=== PATIENT | female | born 1970 | race Two or more races ===

== ENCOUNTER 2024-06-11 08:22 | Outpatient (AMB) | payer MEDICAID, SELFPAY ==
[2024-06-11 08:41] VITALS: BP 120/74; PULSE 74; RESP 18; TEMP 36.1; O2SAT 95; BMI 46.0
--- NOTE | 2024-06-11 08:41 | PD.ORTHCLVIS ---
Vital signs 06/11/24 08:41 Height 1.45 m Height Method Stated Weight 96.729 kg Weight Measurement Method Standing Scale BMI 46.0 BP 120/74 Blood Pressure Source Automatic Cuff Blood Pressure Location Right Upper Arm Position Sitting Respiration 18 Pulse 74 Pulse Source Monitor Temp 96.9 F Temp Source Temporal Artery Scan Pulse Oximetry (%) 95 Oxygen Delivery Method Room Air Med/Allergies Allergies & Medications Allergies Penicillins Allergy (Verified 06/11/24 08:42) Medication Reconciliation meloxicam 7.5 mg tablet 7.5 mg PO QDAY #45 tabs 09/03/23 [Rx Confirmed 06/11/24] metformin 500 mg tablet 500 mg PO QDAY 09/03/23 [History Confirmed 06/11/24] telmisartan 20 mg tablet 20 mg PO QDAY 09/03/23 [History Confirmed 06/11/24] Subjective Visit Visit for: follow up visit, knee and injections Immunization / Flu Flu Vaccine in the Last 12 Months: Yes Flu Vaccine Exclusion Criteria: Already Received History of Present Illness Chief complaint: 3 MONTH F/U ON KNEE INJECTIONS Patient is a pleasant 53-year-old female with bilateral knee pain. This pain has been ongoing for about a year. She has not had significant conservative treatment. She was told that her knees are [id number]. She is working on weightloss and has been on a weightloss injection. Personal History Red flag PMH: smoker (non smoker ) and other (specify) (diabetes ) Pain Pain level (0-10): 9 Pain duration: ALL DAY Pain location: anterior Pain quality: sharp Pain timing: increases with activity Associated signs & symptoms: weakness and stiffness Ambulatory data Ambulatory device: walker Treatments Number of previous injections: 3 Improvement with previous injections: Yes Improvement with PT: No Improvement with NSAIDS: n/a Review of Systems Review of Systems: All systems negative unless otherwise noted in HPI. Exam Exam Patient is in no acute distress and is cooperative with the examination today. Breathing is nonlabored. In no respiratory distress. Bilateral extremities were evaluated and demonstrates sensation intact to light touch. Palpable pedal pulses are present. No significant edema is present. Bilateral hips were examined. The patient has no pain with log roll of the hips. Internal rotation to 30 degrees and external rotation to 30 degrees is painless. Negative FADIR. The left knee was examined. The left knee is in [varus] alignment. Range of motion from [0-115] degrees. Knee is stable to varus and valgus as well as AP translation with <5mm. Patient has a [negative] McMurrays. There is [no] pain with patellofemoral compression and [no] crepitus noted. The knee is [tender] to palpation [medially]. The right knee was also examined. The right knee is in [varus] alignment. Range of motion from [0-120] degrees. Knee is stable to varus and valgus as well as AP translation with <5mm. Patient has a [negative] McMurrays. There is [no] pain with patellofemoral compression and [no] crepitus noted. The knee is [tender] to palpation [medially]. Xrays demonstrate significant osteoarthritis bilaterally Assessment and Plan Problem List (1) Bilateral primary osteoarthritis of knee: Status: Acute Plan: Patient is a pleasant 53-year-old female with bilateral knee pain and osteoarthritis. We discussed nonoperative and operative options. She is actually not a great candidate because of her BMI. The patient has lost 10 pounds and we would like for her to continue losing weight We discussed nonoperative options. We also discussed weight loss. We will continue with conservative management Recommend knee cortisone injections as patient would like to proceed with conservative treatment at this time. The risks and benefits of the procedure were reviewed with the patient and patient gave verbal consent to continue with the procedure. Procedure: performed by Dr. Brown Using sterile technique the Bilateral knees were thoroughly prepped with alcohol, and approximately 1 cc of Kenalog 40 mg/mL and 4 cc of 1% lidocaine was injected into each knee without resistance into the medial tibial femoral joint space. The patient tolerated the procedure. (2) Bilateral knee pain: Status: Acute Office Procedures GNS Level of Care Nursing/Assessment Patient Status: Established Patient Nursing Assessment/Reassesment: Medication Reconciliation, Update PMH in EMR and Vital Signs Coordination of Care: Complex Care and Chronic Disease 1-5, Education Complex Pt/Fam, Consent,records obtained, informed consent, Results/Orders obtained and Staff clarify orders Special Needs: Language special needs Established Patient Charge Established Patient Point Assignment: 95 Established Patient Point Charge: EP Level 3 (80-115) Past Medical History Past Medical History Have you ever been diagnosed with any of the following: Respiratory Problems Smoking: No Smoking Exposure: No
== END 2024-06-11 09:13 | disposition home or self-care (01) ==
LOC: HODSRG 08:22
PROVIDERS: Supervising Provider Orthopaedic Surgery Adult Reconstructive Orthopaedic Surgery; Visit Provider Orthopaedic Surgery Adult Reconstructive Orthopaedic Surgery
DX: M17.0 Bilateral primary osteoarthritis of knee (principal); M25.561 Pain in right knee; M25.562 Pain in left knee
CPT/HCPCS: 20610; 99213; J3301; J3490; G0463

== ENCOUNTER 2024-09-11 08:10 | Outpatient (AMB) | payer MEDICAID, SELFPAY ==
[2024-09-11 08:44] VITALS: BP 118/79; PULSE 81; RESP 18; TEMP 35.9; O2SAT 95; BMI 46.4
--- NOTE | 2024-09-11 08:44 | ORTHONT_ITS ---
Vital signs 09/11/24 08:44 Height 1.45 m Height Method Stated Weight 97.636 kg Weight Measurement Method Standing Scale BMI 46.4 BP 118/79 Blood Pressure Source Automatic Cuff Blood Pressure Location Left Upper Arm Position Sitting Respiration 18 Pulse 81 Pulse Source Monitor Temp 96.7 F L Temp Source Temporal Artery Scan Pulse Oximetry (%) 95 Oxygen Delivery Method Room Air Med/Allergies Allergies & Medications Allergies Penicillins Allergy (Verified 09/11/24 08:45) Medication Reconciliation meloxicam 7.5 mg tablet 7.5 mg PO QDAY #45 tabs 09/03/23 [Rx Confirmed 09/11/24] metformin 500 mg tablet 500 mg PO QDAY 09/03/23 [History Confirmed 09/11/24] telmisartan 20 mg tablet 20 mg PO QDAY 09/03/23 [History Confirmed 09/11/24] Exam Exam Patient is in no acute distress and is cooperative with the examination today. Breathing is nonlabored. In no respiratory distress. Bilateral extremities were evaluated and demonstrates sensation intact to light touch. Palpable pedal pulses are present. No significant edema is present. Bilateral hips were examined. The patient has no pain with log roll of the hips. Internal rotation to 30 degrees and external rotation to 30 degrees is painless. Negative FADIR. The left knee was examined. The left knee is in [varus] alignment. Range of motion from [0-115] degrees. Knee is stable to varus and valgus as well as AP translation with <5mm. Patient has a [negative] McMurrays. There is [no] pain with patellofemoral compression and [no] crepitus noted. The knee is [tender] to palpation [medially]. The right knee was also examined. The right knee is in [varus] alignment. Range of motion from [0-120] degrees. Knee is stable to varus and valgus as well as AP translation with <5mm. Patient has a [negative] McMurrays. There is [no] pain with patellofemoral compression and [no] crepitus noted. The knee is [tender] to palpation [medially]. Xrays demonstrate significant osteoarthritis bilaterally Assessment and Plan Problem List (1) Bilateral primary osteoarthritis of knee: Status: Acute Plan: Patient is a pleasant 53-year-old female with bilateral knee pain and osteoarthritis. We discussed nonoperative and operative options. She is actually not a great candidate because of her BMI. The patient has lost 10 pounds and we would like for her to continue losing weight We discussed nonoperative options. We also discussed weight loss. We will continue with conservative management Recommend knee cortisone injections as patient would like to proceed with conservative treatment at this time. The risks and benefits of the procedure were reviewed with the patient and patient gave verbal consent to continue with the procedure. Procedure: performed by Dr. Brown Using sterile technique the Bilateral knees were thoroughly prepped with alcohol, and approximately 1 cc of Kenalog 40 mg/mL and 4 cc of 1% lidocaine was injected into each knee without resistance into the medial tibial femoral joint space. The patient tolerated the procedure. (2) Bilateral knee pain: Status: Acute Office Procedures GNS Level of Care Nursing/Assessment Patient Status: Established Patient Nursing Assessment/Reassesment: Medication Reconciliation, Update PMH in EMR and Vital Signs Coordination of Care: Complex Care/Chronic Disease 5 or more, Education Complex Pt/Fam, Consent,records obtained, informed consent and Staff clarify orders Established Patient Charge Established Patient Point Assignment: 100 Established Patient Point Charge: EP Level 3 (80-115) Surgical Proc/IM SQ injection Major Surgical Procedure: Yes (BILATERAL KNEE INJECTION ) Medication Given Medication Given Medication Given: Yes Documented Dose Given: 8 Route: Infiitration Medication Given Medication Given Medication Given: Yes Documented Dose Given: 2 Route: Infiitration Office Meds Xylocaine 10 mg/mL (1 %) injection solution Performing Provider: Nicolas Brown MD Performing Location: [facility] Administered by: Lyndsey Benitez on 09/11/24 09:03 Dose Route Admin Location Dispensed Lot Number Expiration Date [facility] [employer] Software Test Engineer 40 mL Infiltration 40 mL triamcinolone acetonide 40 mg/mL suspension for injection Performing Provider: Nicolas Brown MD Performing Location: [facility] Administered by: Nicolas Brown MD on 09/11/24 09:03 Dose Route Admin Location Dispensed Lot Number Expiration Date [facility] [employer] 80 mg intra-articular 2 mL [place] Intake Visit Data Collection New Patient or Established: Established Patient (seen at [facility] within 3 years) Reason for Visit:: BILATERAL KNEE INJECTIONS Image Scientist Required: Yes PCP or OBGYN visit in last 3 months: Yes Do You Feel Safe at Home: Yes Questionairres Past Medical History Past Medical History Have you ever been diagnosed with any of the following: Respiratory Problems Smoking: No Smoking Exposure: No Subjective Visit Visit for: follow up visit and knee Immunization / Flu Flu Vaccine in the Last 12 Months: No Flu Vaccine Exclusion Criteria: No Exclusion Criteria History of Present Illness Chief complaint: bilateral knee pain Patient is a 54-year-old female with bilateral knee pain. The last injections lasted 2 months. She would like a once a day. We discussed weight loss and she is actually gained weight since we last saw her. She would like new knee injections today Personal History Red flag PMH: none Pain Pain level (0-10): 8 Pain duration: CONSTANT Pain location: inside (medial) Pain quality: sharp and aching Pain timing: increases with activity and stairs Associated signs & symptoms: stiffness Ambulatory data Ambulatory device: walker Treatments Improvement with previous injections: Yes Review of Systems Review of Systems: All systems negative unless otherwise noted in HPI.
== END 2024-09-11 09:07 | disposition home or self-care (01) ==
LOC: HODSRG 08:10
PROVIDERS: Supervising Provider Orthopaedic Surgery Adult Reconstructive Orthopaedic Surgery; Visit Provider Orthopaedic Surgery Adult Reconstructive Orthopaedic Surgery
DX: M17.0 Bilateral primary osteoarthritis of knee (principal); M25.561 Pain in right knee; M25.562 Pain in left knee
CPT/HCPCS: 20610; 99213; J3301; J3490; G0463

== ENCOUNTER 2024-12-18 08:15 | Outpatient (AMB) | payer MEDICAID, SELFPAY ==
[2024-12-18 08:40] VITALS: BP 120/67; PULSE 70; RESP 18; TEMP 36.1; O2SAT 95; BMI 46.9
--- NOTE | 2024-12-18 08:40 | PD.ORTHCLVIS ---
Vital signs 12/18/24 08:40 Height 1.45 m Height Method Stated Weight 98.685 kg Weight Measurement Method Standing Scale BMI 46.9 BP 120/67 Blood Pressure Source Automatic Cuff Blood Pressure Location Right Upper Arm Position Sitting Respiration 18 Pulse 70 Pulse Source Monitor Temp 96.9 F Temp Source Temporal Artery Scan Pulse Oximetry (%) 95 Oxygen Delivery Method Room Air Med/Allergies Allergies & Medications Allergies Penicillins Allergy (Verified 12/18/24 08:41) Medication Reconciliation meloxicam 7.5 mg tablet 7.5 mg PO QDAY #45 tabs 09/03/23 [Rx Confirmed 12/18/24] metformin 500 mg tablet 500 mg PO QDAY 09/03/23 [History Confirmed 12/18/24] telmisartan 20 mg tablet 20 mg PO QDAY 09/03/23 [History Confirmed 12/18/24] Exam Exam Patient is in no acute distress and is cooperative with the examination today. Breathing is nonlabored. In no respiratory distress. Bilateral extremities were evaluated and demonstrates sensation intact to light touch. Palpable pedal pulses are present. No significant edema is present. Bilateral hips were examined. The patient has no pain with log roll of the hips. Internal rotation to 30 degrees and external rotation to 30 degrees is painless. Negative FADIR. The left knee was examined. The left knee is in [varus] alignment. Range of motion from [0-115] degrees. Knee is stable to varus and valgus as well as AP translation with <5mm. Patient has a [negative] McMurrays. There is [no] pain with patellofemoral compression and [no] crepitus noted. The knee is [tender] to palpation [medially]. The right knee was also examined. The right knee is in [varus] alignment. Range of motion from [0-120] degrees. Knee is stable to varus and valgus as well as AP translation with <5mm. Patient has a [negative] McMurrays. There is [no] pain with patellofemoral compression and [no] crepitus noted. The knee is [tender] to palpation [medially]. Xrays demonstrate significant osteoarthritis bilaterally. There is varus deformity. Assessment and Plan Problem List (1) Bilateral primary osteoarthritis of knee: Status: Acute Plan: Patient is a pleasant 53-year-old female with bilateral knee pain and osteoarthritis. We discussed nonoperative and operative options. She is actually not a great candidate because of her BMI. T We discussed nonoperative options. We also discussed weight loss. We will continue with conservative management Recommend knee cortisone injections as patient would like to proceed with conservative treatment at this time. The risks and benefits of the procedure were reviewed with the patient and patient gave verbal consent to continue with the procedure. Procedure: performed by Dr. Brown Using sterile technique the Bilateral knees were thoroughly prepped with alcohol, and approximately 1 cc of Kenalog 40 mg/mL and 4 cc of 1% lidocaine was injected into each knee without resistance into the medial tibial femoral joint space. The patient tolerated the procedure. (2) Bilateral knee pain: Status: Acute Office Procedures GNS Level of Care Nursing/Assessment Patient Status: Established Patient Nursing Assessment/Reassesment: Medication Reconciliation, Update PMH in EMR and Vital Signs Coordination of Care: Complex Care and Chronic Disease 1-5, Education Complex Pt/Fam, Consent,records obtained, informed consent, Results/Orders obtained and Staff clarify orders Special Needs: Language special needs Established Patient Charge Established Patient Point Assignment: 95 Established Patient Point Charge: EP Level 3 (80-115) Surgical Proc/IM SQ injection Major Surgical Procedure: Yes (BILATERAL KNEE INJECTION ) Medication Given Medication Given Medication Given: Yes Documented Dose Given: 8 Route: Infiitration Medication Given Medication Given Medication Given: Yes Documented Dose Given: 2 Route: Infiitration Office Meds Xylocaine 10 mg/mL (1 %) injection solution Performing Provider: Nicolas Brown MD Performing Location: [facility] Administered by: Nicolas Brown MD on 12/18/24 09:45 Dose Route Admin Location Dispensed Lot Number Expiration Date [facility] Construction Sales Manager 40 mL Infiltration 40 mL [id number] 03/05/28 60360-126-11 [facility] triamcinolone acetonide 40 mg/mL suspension for injection Performing Provider: Nicolas Brown MD Performing Location: [facility] Administered by: Nicolas Brown MD on 12/18/24 09:45 Dose Route Admin Location Dispensed Lot Number Expiration Date [facility] Construction Sales Manager 80 mg intra-articular KNEE 2 mL [id number] 07/05/26 7711-2582-24 [employer] [place] Intake Visit Data Collection New Patient or Established: Established Patient (seen at [facility] within 3 years) Reason for Visit:: F/U 3 MONTHS KNEE INJECTION Seen by Clinical Staff ONLY (RN/MA): No Verbal consent obtained for Telemed visit?: No Regional Facilities Manager Required: Yes PCP or OBGYN visit in last 3 months: Yes Hx Now: No Do You Feel Safe at Home: Yes Authorities Contacted: N/A Questionairres Past Medical History Past Medical History Have you ever been diagnosed with any of the following: Respiratory Problems Smoking: No Smoking Exposure: No Stomache/Intestinal Problems Obesity: Yes Subjective Visit Visit for: follow up visit, knee and injections Immunization / Flu Flu Vaccine in the Last 12 Months: Yes Flu Vaccine Exclusion Criteria: Already Received History of Present Illness Chief complaint: F/U 3 MONTH KNEE INJECTIONS Patient is a 54-year-old female with bilateral knee pain. The last injections lasted 3 months. We discussed weight loss and she has actually gained weight since we last saw her. She would like new knee injections today Personal History Occupation: DISABLED Red flag PMH: BMI BMI Counceling provided: Yes Pain Pain level (0-10): 9 Pain duration: ALL DAY Pain location: inside (medial), outside (lateral), anterior and posterior Pain quality: sharp, dull and aching Pain timing: increases with activity Associated signs & symptoms: numbness, weakness and stiffness Ambulatory data Ambulatory device: walker Treatments Number of previous injections: 3 Improvement with previous injections: Yes Improvement with PT: No Improvement with NSAIDS: no Review of Systems Review of Systems: All systems negative unless otherwise noted in HPI.
== END 2024-12-18 08:54 | disposition home or self-care (01) ==
LOC: HODSRG 08:15
PROVIDERS: Supervising Provider Orthopaedic Surgery Adult Reconstructive Orthopaedic Surgery; Visit Provider Orthopaedic Surgery Adult Reconstructive Orthopaedic Surgery
DX: M17.0 Bilateral primary osteoarthritis of knee (principal); M25.561 Pain in right knee; M25.562 Pain in left knee; E66.9 Obesity, unspecified; Z68.42 Body mass index [BMI] 45.0-49.9, adult
CPT/HCPCS: 20610; 99213; J3301; J3490; G0463

== ENCOUNTER 2025-03-23 10:10 | Outpatient (AMB) | payer MEDICAID, SELFPAY ==
--- NOTE | 2025-03-23 10:19 | ORTHONT_ITS ---
Vital signs 03/23/25 10:28 Height 1.45 m Height Method Stated Weight 94.092 kg Weight Measurement Method Standing Scale BMI 44.7 BP 117/74 Blood Pressure Source Automatic Cuff Blood Pressure Location Left Upper Arm Position Sitting Respiration 19 Pulse 75 Pulse Source Monitor Temp 97.0 F Temp Source Temporal Artery Scan Pulse Oximetry (%) 96 Oxygen Delivery Method Room Air Med/Allergies Allergies & Medications Allergies Penicillins Allergy (Verified 03/23/25 10:29) Medication Reconciliation meloxicam 7.5 mg tablet 7.5 mg PO QDAY #45 tabs 09/03/23 [Rx Confirmed 03/23/25] metformin 500 mg tablet 500 mg PO QDAY 09/03/23 [History Confirmed 03/23/25] telmisartan 20 mg tablet 20 mg PO QDAY 09/03/23 [History Confirmed 03/23/25] Exam Exam Patient is in no acute distress and is cooperative with the examination today. Breathing is nonlabored. In no respiratory distress. Bilateral extremities were evaluated and demonstrates sensation intact to light touch. Palpable pedal pulses are present. No significant edema is present. Bilateral hips were examined. The patient has no pain with log roll of the hips. Internal rotation to 30 degrees and external rotation to 30 degrees is painless. Negative FADIR. The left knee was examined. The left knee is in [varus] alignment. Range of motion from [0-115] degrees. Knee is stable to varus and valgus as well as AP translation with <5mm. Patient has a [negative] McMurrays. There is [no] pain with patellofemoral compression and [no] crepitus noted. The knee is [tender] to palpation [medially]. The right knee was also examined. The right knee is in [varus] alignment. Range of motion from [0-120] degrees. Knee is stable to varus and valgus as well as AP translation with <5mm. Patient has a [negative] McMurrays. There is [no] pain with patellofemoral compression and [no] crepitus noted. The knee is [tender] to palpation [medially]. Xrays demonstrate significant osteoarthritis bilaterally. There is varus deformity. Assessment and Plan Problem List (1) Bilateral primary osteoarthritis of knee: Status: Acute Plan: Patient is a pleasant 53-year-old female with bilateral knee pain and osteoarthritis. We discussed nonoperative and operative options. She is actually not a great candidate because of her BMI. T We discussed nonoperative options. We also discussed weight loss. We will continue with conservative management Recommend knee cortisone injection as patient would like to proceed with conservative treatment at this time. The risks and benefits of the procedure were reviewed with the patient and patient gave verbal consent to continue with the procedure. Procedure: performed by Dr. Brown Using sterile technique the left knee was thoroughly prepped with alcohol, and approximately 1 cc of Depo-Medrol 80mg/mL and 4 cc of 0.2% ropivacaine was injected without resistance into the medial tibial femoral joint space. The patient tolerated the procedure. Recommend knee cortisone injection as patient would like to proceed with conservative treatment at this time. The risks and benefits of the procedure were reviewed with the patient and patient gave verbal consent to continue with the procedure. Procedure: performed by Dr. Brown Using sterile technique the Right knee was thoroughly prepped with alcohol, and approximately 1 cc of Depo-Medrol 80mg/mL and 4 cc of 0.2% ropivacaine was injected without resistance into the medial tibial femoral joint space. The patient tolerated the procedure. (2) Bilateral knee pain: Status: Acute Office Procedures GNS Level of Care Nursing/Assessment Patient Status: Established Patient Nursing Assessment/Reassesment: Medication Reconciliation, Update PMH in EMR and Vital Signs Coordination of Care: Complex Care and Chronic Disease 1-5, Education Complex Pt/Fam, Consent,records obtained, informed consent, Results/Orders obtained and Staff clarify orders Established Patient Charge Established Patient Point Assignment: 95 Established Patient Point Charge: EP Level 3 (80-115) Surgical Proc/IM SQ injection Major Surgical Procedure: Yes (KNEE INJECTION) Medication Given Medication Given Medication Given: Yes Documented Dose Given: 1 Route: Infiitration Medication Given Medication Given Medication Given: Yes Documented Dose Given: 1 Route: Infiitration Medication Given Medication Given Medication Given: Yes Documented Dose Given: 4 Route: Infiitration Medication Given Medication Given Medication Given: Yes Documented Dose Given: 4 Route: Infiitration Office Meds methylprednisolone acetate 80 mg/mL suspension for injection Performing Provider: Nicolas Brown MD Performing Location: [facility] Administered by: Nicolas Brown MD on 03/23/25 11:19 Dose Route Admin Location Dispensed Lot Number Expiration Date NDC Physician Office Rep 80 mg intra-articular KNEE 1 mL [id number] 01/02/27 [address]-4 [employer] methylprednisolone acetate 80 mg/mL suspension for injection Performing Provider: Nicolas Brown MD Performing Location: [facility] Administered by: Nicolas Brown MD on 03/23/25 11:19 Dose Route Admin Location Dispensed Lot Number Expiration Date [facility] Physician Office Rep 80 mg intra-articular KNEE 1 mL [id number] 01/02/27 [address]-6 [employer] ropivacaine (PF) 2 mg/mL (0.2 %) injection solution Performing Provider: Nicolas Brown MD Performing Location: [facility] Administered by: Nicolas Brown MD on 03/23/25 11:19 Dose Route Admin Location Dispensed Lot Number Expiration Date [facility] Physician Office Rep 20 mL Infiltration KNEE 20 mL [id number] 06/04/26 09165-404-64 [facility] ropivacaine (PF) 2 mg/mL (0.2 %) injection solution Performing Provider: Nicolas Brown MD Performing Location: [facility] Administered by: Nicolas Brown MD on 03/23/25 11:19 Dose Route Admin Location Dispensed Lot Number Expiration Date [facility] Physician Office Rep 20 mL Infiltration KNEE 20 mL [id number] 06/04/26 58057-424-95 [facility] [place] Intake Visit Data Collection New Patient or Established: Established Patient (seen at [facility] within 3 years) Reason for Visit:: F/U 3 MONTHS KNEE INJECTION Seen by Clinical Staff ONLY (RN/MA): No Verbal consent obtained for Telemed visit?: No Volumetric Weigher Required: Yes PCP or OBGYN visit in last 3 months: Yes Hx Now: No Do You Feel Safe at Home: Yes Authorities Contacted: N/A Questionairres Past Medical History Past Medical History Have you ever been diagnosed with any of the following: Respiratory Problems Smoking: No Smoking Exposure: No Stomache/Intestinal Problems Obesity: Yes Subjective Visit Visit for: follow up visit, knee and injections Immunization / Flu Flu Vaccine in the Last 12 Months: Yes Flu Vaccine Exclusion Criteria: Already Received History of Present Illness Chief complaint: F/U 3 MONTH KNEE INJECTIONS Patient is a 54-year-old female with bilateral knee pain. The last injections lasted 3 months. We discussed weight loss and she has actually gained weight since we last saw her. She would like new knee injections today Personal History Occupation: DISABLED Red flag PMH: BMI BMI Counceling provided: Yes Pain Pain level (0-10): 9 Pain duration: ALL DAY Pain location: inside (medial), outside (lateral), anterior and posterior Pain quality: sharp, dull and aching Pain timing: increases with activity Associated signs & symptoms: numbness, weakness and stiffness Ambulatory data Ambulatory device: walker Treatments Number of previous injections: 3 Improvement with previous injections: Yes Improvement with PT: No Improvement with NSAIDS: no Review of Systems Review of Systems: All systems negative unless otherwise noted in HPI.
[2025-03-23 10:28] VITALS: BP 117/74; PULSE 75; RESP 19; TEMP 36.1; O2SAT 96; BMI 44.7
--- NOTE | 2025-03-23 10:40 | XR_ITS ---
Examination: Bilateral knees 2 views Right lateral knee left lateral knee 2 views Bilateral axial knees single view TECHNIQUE: Bilateral AP knees standing single view, bilateral PA knees standing single view flexion Standing right lateral knee left lateral knee 2 views Bilateral axial knees single view total 5 views Date and time: March 23, 2025 1109 hours INDICATIONS: Bilateral knee pain years. FINDINGS: Severe osteopenia Severe narrowing, [id number] medial joint spaces bilaterally Significant bilateral osteoarthritis patellofemoral joints. 16mm ossified joint body in the right suprapatellar joint space Small to moderate bilateral pleural effusions IMPRESSION: Severe narrowing, [id number], medial joint spaces bilaterally Significant bilateral osteoarthritis patellofemoral joints
== END 2025-03-23 10:41 | disposition home or self-care (01) ==
LOC: HODSRG 10:10
PROVIDERS: Supervising Provider Orthopaedic Surgery Adult Reconstructive Orthopaedic Surgery; Visit Provider Orthopaedic Surgery Adult Reconstructive Orthopaedic Surgery
DX: M17.0 Bilateral primary osteoarthritis of knee (principal); M25.562 Pain in left knee; M25.561 Pain in right knee; E66.9 Obesity, unspecified; Z68.41 Body mass index [BMI] 40.0-44.9, adult; Z71.3 Dietary counseling and surveillance
CPT/HCPCS: 20610; 73564; 99213; J1010; J2795; G0463

== ENCOUNTER 2025-06-24 08:04 | Outpatient (AMB) | payer MEDICAID, SELFPAY ==
--- NOTE | 2025-06-24 08:17 | ORTHONT_ITS ---
Vital signs 06/24/25 08:18 Height 1.45 m Height Method Stated Weight 91.342 kg Weight Measurement Method Standing Scale BMI 43.4 BP 115/75 Blood Pressure Source Automatic Cuff Blood Pressure Location Left Upper Arm Position Sitting Respiration 19 Pulse 74 Pulse Source Monitor Temp 97.6 F Temp Source Temporal Artery Scan Pulse Oximetry (%) 96 Oxygen Delivery Method Room Air Med/Allergies Allergies & Medications Allergies Penicillins Allergy (Verified 06/24/25 08:19) Medication Reconciliation meloxicam 7.5 mg tablet 7.5 mg PO QDAY #45 tabs 09/03/23 [Rx Confirmed 06/24/25] metformin 500 mg tablet 500 mg PO QDAY 09/03/23 [History Confirmed 06/24/25] telmisartan 20 mg tablet 20 mg PO QDAY 09/03/23 [History Confirmed 06/24/25] Exam Exam Patient is in no acute distress and is cooperative with the examination today. Breathing is nonlabored. In no respiratory distress. Bilateral extremities were evaluated and demonstrates sensation intact to light touch. Palpable pedal pulses are present. No significant edema is present. Bilateral hips were examined. The patient has no pain with log roll of the hips. Internal rotation to 30 degrees and external rotation to 30 degrees is painless. Negative FADIR. The left knee was examined. The left knee is in [varus] alignment. Range of motion from [0-115] degrees. Knee is stable to varus and valgus as well as AP translation with <5mm. Patient has a [negative] McMurrays. There is [no] pain with patellofemoral compression and [no] crepitus noted. The knee is [tender] to palpation [medially]. The right knee was also examined. The right knee is in [varus] alignment. Range of motion from [0-120] degrees. Knee is stable to varus and valgus as well as AP translation with <5mm. Patient has a [negative] McMurrays. There is [no] pain with patellofemoral compression and [no] crepitus noted. The knee is [tender] to palpation [medially]. Xrays demonstrate significant osteoarthritis bilaterally. There is varus deformity. Assessment and Plan Problem List (1) Bilateral primary osteoarthritis of knee: Status: Acute Plan: Patient is a pleasant 53-year-old female with bilateral knee pain and osteoarthritis. We discussed nonoperative and operative options. She is actually not a great candidate because of her BMI. She has started a GLP1 and has lost a 12 pounds since we last saw her. The patient is on meloxicam as well. (2) Bilateral knee pain: Status: Acute Office Procedures GNS Level of Care Nursing/Assessment Patient Status: Established Patient Nursing Assessment/Reassesment: Medication Reconciliation, Update PMH in EMR and Vital Signs Coordination of Care: Complex Care and Chronic Disease 1-5, Education Complex Pt/Fam, Consent,records obtained, informed consent, Results/Orders obtained and Staff clarify orders Special Needs: Language special needs Established Patient Charge Established Patient Point Assignment: 95 Established Patient Point Charge: EP Level 3 (80-115) MA Intake Visit Data Collection New Patient or Established: Established Patient (seen at [facility] within 3 years) Reason for Visit:: 3MTH BL KNEE INJ FU Seen by Clinical Staff ONLY (RN/MA): No Verbal consent obtained for Telemed visit?: No Sterile Processing Manager Required: Yes PCP or OBGYN visit in last 3 months: Yes Hx Now: No Do You Feel Safe at Home: Yes Authorities Contacted: N/A Questionairres Past Medical History Past Medical History Have you ever been diagnosed with any of the following: Respiratory Problems Smoking: No Smoking Exposure: No Stomache/Intestinal Problems Obesity: Yes Subjective Visit Visit for: follow up visit, knee and injections Immunization / Flu Flu Vaccine in the Last 12 Months: Yes Flu Vaccine Exclusion Criteria: Already Received History of Present Illness Chief complaint: F/U 3 MONTH KNEE INJECTIONS Patient is a 54-year-old female with bilateral knee pain. The last injections lasted 3 months. We discussed weight loss and she has actually gained weight since we last saw her. The last injections did not help at all. She is using a walker Personal History Occupation: DISABLED Red flag PMH: BMI BMI Counceling provided: Yes Pain Pain level (0-10): 9 Pain duration: ALL DAY Pain location: inside (medial), outside (lateral), anterior and posterior Pain quality: sharp, dull and aching Pain timing: increases with activity Associated signs & symptoms: numbness, weakness and stiffness Ambulatory data Ambulatory device: walker Treatments Number of previous injections: 3 Improvement with previous injections: Yes Improvement with PT: No Improvement with NSAIDS: no Review of Systems Review of Systems: All systems negative unless otherwise noted in HPI.
[2025-06-24 08:18] VITALS: BP 115/75; PULSE 74; RESP 19; TEMP 36.4; O2SAT 96; BMI 43.4
== END 2025-06-24 08:41 | disposition home or self-care (01) ==
LOC: HODSRG 08:04
PROVIDERS: Supervising Provider Orthopaedic Surgery Adult Reconstructive Orthopaedic Surgery; Visit Provider Orthopaedic Surgery Adult Reconstructive Orthopaedic Surgery
DX: M25.561 Pain in right knee (principal); M25.562 Pain in left knee; M17.0 Bilateral primary osteoarthritis of knee; E66.9 Obesity, unspecified; Z68.41 Body mass index [BMI] 40.0-44.9, adult
CPT/HCPCS: 99213; G0463